=== PATIENT | male | born 1995 | race Two or more races ===

== ENCOUNTER 2016-07-17 19:39 | Emergency (ER) | payer OTHER ==
[~2016-07-17] VITALS: Ht 182.9 cm; Wt 59.0 kg
[2016-07-17 20:59] LABS: BASOPHILS # (AUTO) 0.1 K/uL (0.0-8.0); BASOPHILS % (AUTO) 0.5 % (0.0-2.0); EOSINOPHILS # (AUTO) 0.2 K/uL (0.0-0.7); EOSINOPHILS % (AUTO) 1.7 % (0.0-7.0); HEMATOCRIT 47.6 % (40-50); HEMOGLOBIN 16.3 G/DL (14.0-18.0); LYMPHOCYTES # (AUTO) 2.8 K/UL (0.8-4.8); LYMPHOCYTES % (AUTO) 21.2 % (20.5-51.5); MEAN CORPUSCULAR HEMOGLOBIN 31.8 UUG (27.0-31.0); MEAN CORPUSCULAR HGB CONC 34 g/dL (32.0-37.0); MEAN CORPUSCULAR VOLUME 92.7 FL (82.0-92.0); MONOCYTES # (AUTO) 0.5 K/UL (0.1-1.30); MONOCYTES % (AUTO) 3.7 % (0.0-11.0); NEUTROPHILS # (AUTO) 9.8 K/UL (1.8-8.9); NEUTROPHILS % (AUTO) 72.9 % (38.5-71.5); PLATELET COUNT (AUTO) 299 K/UL (150-450); RED BLOOD CELL COUNT(AUTO) 5.13 MIL/UL (4.7-6.1); RED CELL DISTRIBUTION WIDTH 12.7 % (11.5-14.5); WHITE BLOOD COUNT (AUTO) 13.4 K/UL (4.0-11.2)
[2016-07-17 21:18] LABS: CALCIUM 9.5 mg/dL (8.5-10.1); CREATININE 0.9 mg/dL (0.6-1.3); POTASSIUM 4.2 mmol/L (3.5-5.1)
[2016-07-17 21:21] LABS: *BILIRUBIN,URIN NEGATIVE (NEGATIVE); *BLOOD, URINE Trace-intact (NEGATIVE); *CLARITY,URINE CLEAR (CLEAR); *COLOR,URINE YELLOW (YELLOW); *KETONES,URINE NEGATIVE (NEGATIVE); *PROTEIN,URINE 2+ (NEGATIVE); *UROBILINOGEN,URINE 0.2 E.U./dl (NORMAL); LEUKOCYTE ESTERASE ,URINE NEGATIVE (NEGATIVE); NITRITE, URINE NEGATIVE (NEGATIVE); UGLUCOSE NEGATIVE (NEGATIVE)
[2016-07-17 21:23] LABS: ALBUMIN 4.8 g/dL (3.4-5.0); BILIRUBIN,DIRECT 0.2 mg/dL (0.0-0.2); BILIRUBIN,TOTAL 1.4 mg/dL (0.2-1.0); TOTAL PROTEIN, SERUM 8.5 g/dL (6.4-8.2)
[2016-07-17 21:28] LABS: COARSE GRANULAR CASTS,URINE 0-3 /LPF; MUCUS,URINE MANY /LPF (0-FEW); SQUAMOUS EPITHELIAL CELL,UR FEW /HPF (NONE SEEN); WBC,URINE 0-3 /HPF (0-3)
--- NOTE | 2016-07-17 22:07 | NUR ---
Patient discharged to home in stable conditon. Written and verbal after care instructions given. Patient verbalizes understanding of instructions. walkled out of ER with steady gait with no distress noted
[2016-07-17 22:08] VITALS: BP 118/85
== END 2016-07-17 22:09 | disposition home or self-care (01) ==
LOC: ER 19:41
DX: R16.1 Splenomegaly, not elsewhere classified (principal)
CPT/HCPCS: 36415; 70030-TC; 71010; 83690; 85025; 85730; 93005; A4663

== ENCOUNTER 2016-09-20 08:27 | Emergency (ER) | payer OTHER ==
[~2016-09-20] VITALS: Ht 182.9 cm; Wt 52.2 kg
[2016-09-20 09:44] LABS: BASOPHILS # (AUTO) 0.1 K/uL (0.0-8.0); BASOPHILS % (AUTO) 0.8 % (0.0-2.0); EOSINOPHILS # (AUTO) 0.2 K/uL (0.0-0.7); EOSINOPHILS % (AUTO) 2.8 % (0.0-7.0); HEMATOCRIT 46.8 % (40-50); HEMOGLOBIN 15.2 G/DL (14.0-18.0); LYMPHOCYTES # (AUTO) 2.4 K/UL (0.8-4.8); LYMPHOCYTES % (AUTO) 29.4 % (20.5-51.5); MEAN CORPUSCULAR HEMOGLOBIN 30.6 UUG (27.0-31.0); MEAN CORPUSCULAR HGB CONC 33 g/dL (32.0-37.0); MONOCYTES # (AUTO) 0.3 K/UL (0.1-1.30); MONOCYTES % (AUTO) 3.6 % (0.0-11.0); NEUTROPHILS % (AUTO) 63.4 % (38.5-71.5); PLATELET COUNT (AUTO) 269 K/UL (150-450); RED BLOOD CELL COUNT(AUTO) 4.98 MIL/UL (4.7-6.1)
[2016-09-20 10:03] LABS: POTASSIUM 4.4 mmol/L (3.5-5.1)
[2016-09-20 10:09] LABS: BILIRUBIN,TOTAL 1.3 mg/dL (0.2-1.0); TOTAL PROTEIN, SERUM 8.2 g/dL (6.4-8.2)
--- NOTE | 2016-09-20 10:30 | NUR ---
Patient discharged to home in stable conditon. Written and verbal after care instructions given. Patient verbalizes understanding of instructions.
== END 2016-09-20 10:32 | disposition home or self-care (01) ==
LOC: ER 08:27
DX: M79.641 Pain in right hand (principal)
CPT/HCPCS: 36415; 80053; 85025; 99284; A4663

== ENCOUNTER 2016-11-12 05:29 | Emergency (ER) | payer OTHER ==
[~2016-11-12] VITALS: Ht 182.9 cm; Wt 56.7 kg
[2016-11-12] MEDS ORDERED: IV NORMAL SALINE 1000 ML BAG IV ONE ×2 (05:45→07:00)
[2016-11-12] MEDS ORDERED: ONDANSETRON 4 MG/2 ML VIAL IV ONE ×2 (05:45→07:45)
[2016-11-12] MEDS ORDERED: HYDROMORPHONE 1 MG/1 ML DISP.SYRIN IV ONE ×3 (05:45→07:45)
[2016-11-12] MEDS ORDERED: HYDROMORPHONE 2 MG/1 ML DISP.SYRIN ONE ×3 (06:05→07:48)
[2016-11-12] MEDS ORDERED: ONDANSETRON 4 MG/2 ML VIAL ONE ×2 (06:06→07:49)
[2016-11-12 06:21] LABS: BASOPHILS # (AUTO) 0.3 K/uL (0.0-8.0); BASOPHILS % (AUTO) 3.1 % (0.0-2.0); EOSINOPHILS # (AUTO) 0.3 K/uL (0.0-0.7); EOSINOPHILS % (AUTO) 3.2 % (0.0-7.0); HEMATOCRIT 44.7 % (40-50); LYMPHOCYTES # (AUTO) 4.6 K/UL (0.8-4.8); LYMPHOCYTES % (AUTO) 44.5 % (20.5-51.5); MEAN CORPUSCULAR HEMOGLOBIN 31.6 UUG (27.0-31.0); MEAN CORPUSCULAR HGB CONC 34 g/dL (32.0-37.0); MEAN CORPUSCULAR VOLUME 93.9 FL (82.0-92.0); MONOCYTES # (AUTO) 0.5 K/UL (0.1-1.30); MONOCYTES % (AUTO) 4.9 % (0.0-11.0); NEUTROPHILS # (AUTO) 4.5 K/UL (1.8-8.9); NEUTROPHILS % (AUTO) 44.3 % (38.5-71.5); PLATELET COUNT (AUTO) 279 K/UL (150-450); RED BLOOD CELL COUNT(AUTO) 4.76 MIL/UL (4.7-6.1); WHITE BLOOD COUNT (AUTO) 10.2 K/UL (4.0-11.2)
[2016-11-12 06:38] LABS: *BILIRUBIN,URIN NEGATIVE (NEGATIVE); *BLOOD, URINE 3+ (NEGATIVE); *COLOR,URINE AMBER (YELLOW); *KETONES,URINE NEGATIVE (NEGATIVE); *PROTEIN,URINE 1+ (NEGATIVE); *UROBILINOGEN,URINE 0.2 E.U./dl (NORMAL); BILIRUBIN,DIRECT 0.1 mg/dL (0.0-0.2); LEUKOCYTE ESTERASE ,URINE NEGATIVE (NEGATIVE); NITRITE, URINE NEGATIVE (NEGATIVE); PH,URINE 6.5 (5.0-8.0); TOTAL PROTEIN, SERUM 7.8 g/dL (6.4-8.2); UGLUCOSE NEGATIVE (NEGATIVE)
[2016-11-12 06:43] LABS: *CLARITY,URINE HAZY (CLEAR)
[2016-11-12 06:44] LABS: BACTERIA,URINE NONE SEEN /HPF (NONE SEEN); RBC,URINE TNTC /HPF (0-3); SQUAMOUS EPITHELIAL CELL,UR NONE SEEN /HPF (NONE SEEN); WBC,URINE 0-3 /HPF (0-3)
[2016-11-12] MEDS ORDERED: KETOROLAC TROMETHAMINE 30 MG INJ IVP ONE (07:00)
[2016-11-12] MEDS ORDERED: KETOROLAC TROMETHAMINE 30 MG INJ ONE (07:03)
--- NOTE | 2016-11-12 07:09 | NUR ---
SBAR report given to Eugenia Edouard RN.
[2016-11-12] MEDS ORDERED: TAMSULOSIN HCL 0.4 MG CAP.SR.24H PO ONE (07:15)
[2016-11-12] MEDS ORDERED: TAMSULOSIN HCL 0.4 MG CAP.SR.24H ONE (07:25)
--- NOTE | 2016-11-12 08:30 | NUR ---
Pt resting in bed w/ both eyes closed, mother at the bedside and states he feels better and wishes to go home.
[2016-11-12 08:44] VITALS: BP 126/70
--- NOTE | 2016-11-12 08:44 | NUR ---
IV removed. Catheter intact and site benign. Pressure and 4x4 gauze applied to site. No bleeding noted.
--- NOTE | 2016-11-12 08:45 | NUR ---
Patient discharged to home in stable conditon. Written and verbal after care instructions given. Patient verbalizes understanding of instructions. Pt left ER w/ steady gait accompained by mother.
[2016-11-14 04:06] LABS: HEPATITIS A AB, IgM Negative (Negative); HEPATITIS B SURFACE AG Negative (Negative)
== END 2016-11-12 08:46 | disposition home or self-care (01) ==
LOC: ER 05:29
DX: N23 Unspecified renal colic (principal); F17.200 Nicotine dependence, unspecified, uncomplicated
CPT/HCPCS: 36415; 83690; 85025; 85730; 86704; 86709; 86803; 87340; A4663; J1170; J1885; J2405; J7030

== ENCOUNTER 2017-02-04 21:45 | Emergency (ER) | payer OTHER ==
[~2017-02-04] VITALS: Ht 180.3 cm; Wt 60.8 kg
--- NOTE | 2017-02-04 22:42 | NUR ---
DR POSADA INTO EVAL PATIENT
[2017-02-04 22:58] LABS: *BILIRUBIN,URIN NEGATIVE (NEGATIVE); *BLOOD, URINE NEGATIVE (NEGATIVE); *CLARITY,URINE CLEAR (CLEAR); *COLOR,URINE STRAW (YELLOW); *KETONES,URINE NEGATIVE (NEGATIVE); *PROTEIN,URINE NEGATIVE (NEGATIVE); *UROBILINOGEN,URINE 0.2 E.U./dl (NORMAL); LEUKOCYTE ESTERASE ,URINE NEGATIVE (NEGATIVE); NITRITE, URINE NEGATIVE (NEGATIVE); PH,URINE 7.5 (5.0-8.0); UGLUCOSE NEGATIVE (NEGATIVE)
[2017-02-04] MEDS ORDERED: IBUPROFEN 800 MG TABLET PO ONE (23:30)
[2017-02-04 23:45] LABS: BACTERIA,URINE NONE SEEN /HPF (NONE SEEN); RBC,URINE 0-3 /HPF (0-3); SQUAMOUS EPITHELIAL CELL,UR FEW /HPF (NONE SEEN); WBC,URINE NONE SEEN /HPF (0-3)
[2017-02-04 23:51] LABS: BASOPHILS # (AUTO) 0.1 K/uL (0.0-8.0); BASOPHILS % (AUTO) 0.6 % (0.0-2.0); EOSINOPHILS # (AUTO) 0.1 K/uL (0.0-0.7); EOSINOPHILS % (AUTO) 1.2 % (0.0-7.0); HEMATOCRIT 43.2 % (36.7-47.1); LYMPHOCYTES # (AUTO) 3.5 K/uL (20.0-40.0); LYMPHOCYTES % (AUTO) 31.9 % (20.5-51.5); MEAN CORPUSCULAR HEMOGLOBIN 32.2 uug (23.8-33.4); MEAN CORPUSCULAR HGB CONC 35 g/dL (32.5-36.3); MEAN CORPUSCULAR VOLUME 92.7 fL (73.0-96.2); MONOCYTES # (AUTO) 0.8 K/uL (2.0-10.0); MONOCYTES % (AUTO) 6.9 % (0.0-11.0); NEUTROPHILS # (AUTO) 6.5 K/uL (1.8-8.9); NEUTROPHILS % (AUTO) 59.4 % (38.5-71.5); PLATELET COUNT (AUTO) 266 K/uL (152-348); RED BLOOD CELL COUNT(AUTO) 4.66 MIL/uL (4.06-5.63); WHITE BLOOD COUNT (AUTO) 10.9 K/uL (3.6-10.2)
[2017-02-04] MEDS ORDERED: IBUPROFEN 800 MG TABLET ONE (23:51)
[2017-02-05 00:27] LABS: CREATININE 0.9 mg/dL (0.6-1.3); POTASSIUM 3.7 mmol/L (3.5-5.1)
[2017-02-05 00:32] LABS: BILIRUBIN,DIRECT 0.2 mg/dL (0.0-0.2); BILIRUBIN,TOTAL 1.1 mg/dL (0.2-1.0); TOTAL PROTEIN, SERUM 7.7 g/dL (6.4-8.2)
--- NOTE | 2017-02-05 01:43 | NUR ---
Patient discharged to home in stable conditon WITH MOTHER TAKING PATIENT. Written and verbal after care instructions given. Patient verbalizes understanding of instructions. WALKED OUT OF ER WITH NO DISTRESS
[2017-02-05 01:44] VITALS: BP 128/77
== END 2017-02-05 01:44 | disposition home or self-care (01) ==
LOC: ER 21:46
DX: R10.10 Upper abdominal pain, unspecified (principal); R10.31 Right lower quadrant pain; Z87.442 Personal history of urinary calculi; F17.200 Nicotine dependence, unspecified, uncomplicated
CPT/HCPCS: 36415; 80048; 80076; 81001; 83690; 85025; 85379; 85651; 99284; A4663; 87086

== ENCOUNTER 2020-05-04 09:39 | Emergency (ER) | payer OTHER ==
[~2020-05-04] VITALS: Ht 177.8 cm; Wt 88.5 kg
--- NOTE | 2020-05-04 09:54 | NUR ---
at bedside for assessment
[2020-05-04] MEDS ORDERED: OLANZAPINE ZYDIS 5 MG TAB.RAPDIS PO SCH (10:15)
[2020-05-04] MEDS ORDERED: OLANZAPINE 5 MG TABLET ONE (10:17)
[2020-05-04 10:22] LABS: *BILIRUBIN,URIN NEGATIVE (NEGATIVE); *BLOOD, URINE NEGATIVE (NEGATIVE); *CLARITY,URINE CLEAR (CLEAR); *COLOR,URINE YELLOW (YELLOW); *KETONES,URINE NEGATIVE (NEGATIVE); *UROBILINOGEN,URINE 0.2 E.U./dl (NORMAL); LEUKOCYTE ESTERASE ,URINE NEGATIVE (NEGATIVE); NITRITE, URINE NEGATIVE (NEGATIVE); PH,URINE 5.5 (5.0-8.0); UGLUCOSE NEGATIVE (NEGATIVE)
[2020-05-04 10:28] LABS: CARBON DIOXIDE 25 mmol/L (21-32); CHLORIDE 102 mmol/L (98-107); CREATININE 1.1 mg/dL (0.6-1.3); GLUCOSE 101 mg/dL (74-106); UREA NITROGEN, BLOOD 8 mg/dL (7-18)
[2020-05-04 10:31] LABS: BASOPHILS # (AUTO) 0.1 K/uL (0.0-8.0); EOSINOPHILS # (AUTO) 0.1 K/uL (0.0-0.7); EOSINOPHILS % (AUTO) 0.7 % (0.0-7.0); HEMATOCRIT 48.1 % (36.7-47.1); HEMOGLOBIN 16.4 g/dL (12.5-16.3); LYMPHOCYTES # (AUTO) 3.3 K/uL (20.0-40.0); LYMPHOCYTES % (AUTO) 42.3 % (20.5-51.5); MEAN CORPUSCULAR HEMOGLOBIN 32.5 uug (23.8-33.4); MEAN CORPUSCULAR HGB CONC 34 g/dL (32.5-36.3); MEAN CORPUSCULAR VOLUME 95.1 fL (73.0-96.2); MONOCYTES # (AUTO) 0.6 K/uL (2.0-10.0); MONOCYTES % (AUTO) 7.4 % (0.0-11.0); NEUTROPHILS # (AUTO) 3.8 K/uL (1.8-8.9); NEUTROPHILS % (AUTO) 48.6 % (38.5-71.5); PLATELET COUNT (AUTO) 390 K/uL (152-348); RED BLOOD CELL COUNT(AUTO) 5.05 MIL/uL (4.06-5.63); WHITE BLOOD COUNT (AUTO) 7.8 K/uL (3.6-10.2)
[2020-05-04 10:33] LABS: ALANINE AMINOTRANSFERASE 94 U/L (16-63); ALKALINE PHOSPHATASE 91 U/L (50-136); ASPARTATE AMINOTRANSFERASE 52 U/L (15-37); BILIRUBIN,DIRECT 0.2 mg/dL (0.0-0.2); BILIRUBIN,TOTAL 0.9 mg/dL (0.2-1.0); TOTAL PROTEIN, SERUM 8.7 g/dL (6.4-8.2)
[2020-05-04 10:34] LABS: ACETAMINOPHEN < 2.0 ug/mL (10-30)
[2020-05-04 10:37] LABS: ETHANOL 167 MG/DL (0-0)
[2020-05-04 10:37] LABS: *AMPHETAMINE, URINE POSITIVE (NEGATIVE); *CANNABINOID, URINE POSITIVE (NEGATIVE); *COCCAINE, URINE NEGATIVE (NEGATIVE); *OPIATE, URINE NEGATIVE (NEGATIVE); *PHENCYCLIDINE SCREEN,URINE NEGATIVE (NEGATIVE)
[2020-05-04] MEDS ORDERED: LORAZEPAM 0.5 MG TABLET PO ONE (10:45)
--- NOTE | 2020-05-04 10:48 | NUR ---
Patient agitation noted, patient noted removing clothing and arguing with mother, medication given as prescribed, able to be redirected
[2020-05-04] MEDS ORDERED: LORAZEPAM 1 MG TABLET ONE (10:51)
--- NOTE | 2020-05-04 10:53 | NUR ---
Critical alcohol level noted at 0.17, notified
--- NOTE | 2020-05-04 11:04 | NUR ---
Bailee from crisis team called at this time, awaiting returned call, message left
[2020-05-04 12:31] LABS: RBC,URINE NONE SEEN /HPF (0-3); WBC,URINE 0-3 /HPF (0-3)
[2020-05-04 12:32] LABS: BACTERIA,URINE NONE SEEN /HPF (NONE SEEN); SQUAMOUS EPITHELIAL CELL,UR FEW /HPF (NONE SEEN)
--- NOTE | 2020-05-04 13:27 | NUR ---
Bailee called at this time for ETA, message left, awaiting returned call
[2020-05-04] MEDS ORDERED: LORA-259 PO (14:14)
--- NOTE | 2020-05-04 14:35 | NUR ---
Patient discharged to home in stable condition. Rx given, left with mother, instructed to follow up with Primary care physician. No signs of acute distress noted. took all belongings, crisis team evaluation completed by Bailee. Written and verbal after care instructions given. Patient verbalizes understanding of instructions. Stressed follow up or return to ER for worsening s/s.
[2020-05-04 14:39] VITALS: BP 136/79
== END 2020-05-04 14:39 | disposition home or self-care (01) ==
LOC: ER 09:39
DX: F29 Unspecified psychosis not due to a substance or known physiological condition (principal); Z20.822 Contact with and (suspected) exposure to COVID-19; Z83.3 Family history of diabetes mellitus; Z82.49 Family history of ischemic heart disease and other diseases of the circulatory system; F17.200 Nicotine dependence, unspecified, uncomplicated; F15.90 Other stimulant use, unspecified, uncomplicated; F10.10 Alcohol abuse, uncomplicated; Y90.6 Blood alcohol level of 120-199 mg/100 ml
CPT/HCPCS: 36415; 85025; A4663; G0480

== ENCOUNTER 2021-03-15 15:18 | Emergency (ER) | payer OTHER ==
[~2021-03-15] VITALS: Ht 177.8 cm; Wt 79.4 kg
[~2021-03-15 15:18] MED LIST: LORA-259 PO
--- NOTE | 2021-03-15 15:30 | NUR ---
spoke with pt's mother via telephone and discussed plan of care.
[2021-03-15 15:39] LABS: HEMATOCRIT 46.7 % (36.7-47.1); MEAN CORPUSCULAR HEMOGLOBIN 31.3 uug (23.8-33.4); MEAN CORPUSCULAR VOLUME 90.9 fL (73.0-96.2); PLATELET COUNT (AUTO) 357 K/uL (152-348)
[2021-03-15 15:50] LABS: CARBON DIOXIDE 28 mmol/L (21-32); CHLORIDE 99 mmol/L (98-107); GLUCOSE 92 mg/dL (74-106); POTASSIUM 3.8 mmol/L (3.5-5.1); UREA NITROGEN, BLOOD 9 mg/dL (7-18)
[2021-03-15 15:56] LABS: ALANINE AMINOTRANSFERASE 60 U/L (16-63); ALKALINE PHOSPHATASE 111 U/L (50-136); ASPARTATE AMINOTRANSFERASE 39 U/L (15-37); BILIRUBIN,TOTAL 1.3 mg/dL (0.2-1.0); TOTAL PROTEIN, SERUM 8.5 g/dL (6.4-8.2)
[2021-03-15 15:58] LABS: ACETAMINOPHEN < 2.0 ug/mL (10-30)
[2021-03-15 16:45] LABS: *AMPHETAMINE, URINE NEGATIVE (NEGATIVE); *CANNABINOID, URINE POSITIVE (NEGATIVE); *COCCAINE, URINE NEGATIVE (NEGATIVE); *OPIATE, URINE NEGATIVE (NEGATIVE); *PHENCYCLIDINE SCREEN,URINE NEGATIVE (NEGATIVE)
--- NOTE | 2021-03-15 17:10 | NUR ---
Per pt is medically clear for psych eval. Called and spoke with Sarah who stated she will come in to eval the pt. Pt is resting in [facility] in room 4b and watching TV with no s/s of distress noted at this time.
[2021-03-15] MEDS: OLANZAPINE 10 MG VIAL IM ONE (19:58)
[2021-03-15] MEDS ORDERED: OLANZAPINE 10 MG VIAL IM ONE (20:03)
[2021-03-16] MEDS ORDERED: OLANZAPINE 10 MG VIAL IM ONE (01:48)
[2021-03-16] MEDS: OLANZAPINE 10 MG VIAL IM ONE (01:49)
--- NOTE | 2021-03-16 02:00 | NUR ---
Patient attempted to elope the ER several times. Hospital's secruity gwen called and [facility] TEAM made aware of situation.
--- NOTE | 2021-03-16 02:45 | NUR ---
Sarah from PET put pt on 72 hr hold
[2021-03-16] MEDS ORDERED: LORAZEPAM 2 MG/1 ML VIAL ONE (03:11)
[2021-03-16] MEDS: LORAZEPAM 2 MG/1 ML VIAL IM ONE (03:14)
--- NOTE | 2021-03-16 07:30 | NUR ---
Pt is sleeping in [facility] in room 4B with no s/s of distress noted. Sitter arrived and is at bedside for 1:1 observation. Per report from waiter/waitress formal pt is pending transfer to outside psych facility per PET team.
--- NOTE | 2021-03-16 08:30 | NUR ---
pt finished breakfast tray with good apetite. one to one sitter at [facility].
--- NOTE | 2021-03-16 09:50 | NUR ---
pt's mother,Tabitha, called and got the update, her phone is [phone].
--- NOTE | 2021-03-16 09:56 | NUR ---
rachel from [facility] called and said to fax the hold to [phone].
--- NOTE | 2021-03-16 11:03 | NUR ---
ITA FROM [facility] [place] CALLED WITH THE FOLLOWING INFO: ACCEPTING MD IS DR. REBOLLEDO, STAFF UNIT [address], REPORT NUMBER [phone]. ROOM WILL BE AVAILABLE AFTER 1300 TODAY. CALLED AMBULANCE AND ARRANGED DRILLER'S ASSISTANT FOR AROUND 1230.
--- NOTE | 2021-03-16 13:38 | NUR ---
[facility] AT BEDSIDE TO TAKE THE PT TO [facility]. PT CALM AND COOPERATIVE.
== END 2021-03-16 13:45 ==
LOC: ER 15:18
DX: R44.1 Visual hallucinations (principal); F17.290 Nicotine dependence, other tobacco product, uncomplicated; Z20.822 Contact with and (suspected) exposure to COVID-19
CPT/HCPCS: 36415; 70450; 80053; 80299; 80307; 84484; 85025; 87426; 87806; 93005; 96372 ×2; 99285; J2060; U0003; 70030-TC; J2358

== ENCOUNTER 2021-11-15 19:01 | Emergency (ER) | payer OTHER ==
--- NOTE | 2021-11-15 20:30 | NUR ---
PATIENT WAS CALLED TO BE TRIAGED BUT WAS NOT PRESENT IN THE WAITING ROOM OR OUTSIDE OF ER.
--- NOTE | 2021-11-15 21:00 | NUR ---
Patient was called to be triaged but was not present. PATIENT WAS NOT TRIAGED OR SEEN BY ERMD.
== END 2021-11-15 21:00 | disposition left against medical advice (07) ==
LOC: ER 19:05
DX: Z53.21 Procedure and treatment not carried out due to patient leaving prior to being seen by health care provider (principal)

== ENCOUNTER 2022-10-11 14:05 | Emergency (ER) | payer MEDICAID, OTHER ==
[~2022-10-11] VITALS: Ht 177.8 cm; Wt 97.5 kg
[2022-10-11] MEDS ORDERED: METOCLOPRAMIDE HCL 10 MG/2 ML VIAL IV ONE (14:45)
[2022-10-11] MEDS ORDERED: KETOROLAC TROMETHAMINE 15 MG INJ IVP ONE (14:45)
[2022-10-11] MEDS ORDERED: IV NORMAL SALINE 1000 ML BAG IV ONE (14:45)
[2022-10-11] MEDS ORDERED: KETOROLAC TROMETHAMINE 15 MG INJ ONE (14:51)
[2022-10-11] MEDS ORDERED: METOCLOPRAMIDE HCL 10 MG/2 ML VIAL ONE (14:51)
[2022-10-11 15:01] LABS: BASOPHILS % (AUTO) 0.1 % (0.0-2.0); EOSINOPHILS # (AUTO) 0.3 K/uL (0.0-0.7); EOSINOPHILS % (AUTO) 2.3 % (0.0-7.0); HEMATOCRIT 43.6 % (36.7-47.1); HEMOGLOBIN 14.4 g/dL (12.5-16.3); LYMPHOCYTES # (AUTO) 1.5 K/uL (0.8-4.8); LYMPHOCYTES % (AUTO) 13.4 % (20.5-51.5); MEAN CORPUSCULAR HGB CONC 33 g/dL (32.5-36.3); MEAN CORPUSCULAR VOLUME 87.8 fL (73.0-96.2); MONOCYTES # (AUTO) 0.3 K/uL (0.1-1.30); MONOCYTES % (AUTO) 2.3 % (0.0-11.0); NEUTROPHILS # (AUTO) 9.4 K/uL (1.8-8.9); NEUTROPHILS % (AUTO) 81.9 % (38.5-71.5); PLATELET COUNT (AUTO) 353 K/uL (152-348); RED BLOOD CELL COUNT(AUTO) 4.96 MIL/uL (4.06-5.63); RED CELL DISTRIBUTION WIDTH 14.2 % (12.1-16.2); WHITE BLOOD COUNT (AUTO) 11.5 K/uL (3.6-10.2)
[2022-10-11 15:08] LABS: DIFFERENTIAL COMMENT 1
[2022-10-11 15:15] LABS: CALCIUM 8.7 mg/dL (8.5-10.1); CREATININE 1.1 mg/dL (0.6-1.3); POTASSIUM 3.9 mmol/L (3.5-5.1)
[2022-10-11 15:21] LABS: ALBUMIN 4.3 g/dL (3.4-5.0); BILIRUBIN,DIRECT 0.2 mg/dL (0.0-0.2); BILIRUBIN,TOTAL 0.9 mg/dL (0.2-1.0)
[2022-10-11 16:26] LABS: *BILIRUBIN,URIN NEGATIVE (NEGATIVE); *BLOOD, URINE 3+ (NEGATIVE); *CLARITY,URINE CLEAR (CLEAR); *COLOR,URINE YELLOW (YELLOW); *KETONES,URINE NEGATIVE (NEGATIVE); *PROTEIN,URINE 1+ (NEGATIVE); *UROBILINOGEN,URINE 0.2 E.U./dl (NORMAL); LEUKOCYTE ESTERASE ,URINE NEGATIVE (NEGATIVE); NITRITE, URINE NEGATIVE (NEGATIVE); PH,URINE 5.5 (5.0-8.0); UGLUCOSE NEGATIVE (NEGATIVE)
[2022-10-11] MEDS ORDERED: TAMS-3 PO (16:29)
[2022-10-11] MEDS ORDERED: IBUP-1957 PO (16:29)
[2022-10-11 16:46] LABS: BACTERIA,URINE FEW /HPF (NONE SEEN); RBC,URINE 20-50 /HPF (0-3); SQUAMOUS EPITHELIAL CELL,UR FEW /HPF (NONE SEEN); WBC,URINE 0-3 /HPF (0-3)
[2022-10-11 16:49] VITALS: BP 150/111; TEMP 98.5; O2SAT 99
== END 2022-10-11 16:49 | disposition home or self-care (01) ==
LOC: ER 14:05
DX: N13.30 Unspecified hydronephrosis (principal); N20.1 Calculus of ureter; F17.210 Nicotine dependence, cigarettes, uncomplicated; Z79.1 Long term (current) use of non-steroidal anti-inflammatories (NSAID); Z79.899 Other long term (current) drug therapy
CPT/HCPCS: 99285; 74176; 96374; 96361; 96375; 80076; 80048; 81001; 83690; 85025; 36415; J1885; J2765; J7040; A4663